=== PATIENT | male | born 1955 | race Caucasian/White ===

== ENCOUNTER 2023-08-11 14:56 | Emergency (ER) | payer BC, SELFPAY ==
[2023-08-11 15:01] VITALS: BP 142/77; PULSE 73; RESP 18; TEMP 36.4; O2SAT 98; BMI 24.2
--- NOTE | 2023-08-11 15:51 | EDS_ITS ---
HPI History of Present Illness Chief Complaint: Other, Pain/Inj PFSH PFSH Medical History (Updated 08/11/23 @ 19:[address] Dean Pryor, DO) Kidney stones Home Medications ?Medication ?Instructions ?Recorded ?Last Taken ?Type nitroglycerin 0.4 mg sublingual 0.4 mg sublingual .once PRN 08/11/23 Unknown Rx tablet esophageal spasm #30 tabs pantoprazole 20 mg tablet,delayed 20 mg PO DAILY #30 tabs 08/11/23 Unknown Rx release (Protonix) Allergy/AdvReac Type Severity Reaction Status Date / Time fluticasone (From Flonase) Allergy Other Verified 08/11/23 15:01 levofloxacin (From Levaquin) Allergy Other Verified 08/11/23 15:01 monosodium glutamate (msg) Allergy Other Verified 08/11/23 15:01 sulfamethoxazole (From Allergy PT UNSURE Verified 08/11/23 15:01 Bactrim) OF REACTION trimethoprim (From Bactrim) Allergy PT UNSURE Verified 08/11/23 15:01 OF REACTION Surgical History (Updated 08/11/23 @ 15:45 by Caryl Arndt) History of appendectomy Social History Smoking Status: Former smoker EXAM Physical Exam Const Vital Signs: 08/11/23 15:01 08/11/23 15:44 08/11/23 16:59 Temperature 97.6 F L Temperature Source Temporal Pulse Rate 73 70 Respiratory Rate 18 Respiratory Effort Normal Non-Labored Respiratory Pattern Normal Blood Pressure 142/77 H 149/85 H Blood Pressure Mean 98 Pulse Ox 98 Oxygen Delivery Method Room Air 08/11/23 17:00 08/11/23 19:00 08/11/23 20:40 Temperature 98 F Temperature Source Pulse Rate 70 71 65 Respiratory Rate 15 19 H 17 Respiratory Effort Respiratory Pattern Blood Pressure 149/85 H 126/69 H 141/78 H Blood Pressure Mean 106 88 99 Pulse Ox 99 94 97 Oxygen Delivery Method Room Air Room Air MDM MDM MDM Narrative Medical decision making narrative: HISTORY OF PRESENT ILLNESS: 68-year-old male presents with difficulty swallowing. Patient states he has a history of esophageal spasms. Per patient was diagnosed with this clinically by his primary care physician, family practitioner who made this diagnosis based on his symptoms. He is never had a EGD or seen a GI doctor. He states today he developed his usual symptoms where he feels a sense of fullness in his e pigastrium, pain. He notes today symptoms did not resolve with his usual therapy of drinking 3 glasses of water very hard. He denies any chest pain but notes shortness of breath. The patient denies recent surgery in the last 4 weeks or immobilization in the last 3 days, denies previous diagnosis of DVT or PE, hemoptysis, unilateral leg swelling or malignancy with treatment the last 6 months or palliative. No estrogen use noted. Denies any bleeding diathesis. REVIEW OF SYSTEMS: Pertinent positives: Difficulty swallowing, shortness of breath Pertinent negatives: Chest pain, bleeding, loss of consciousness PHYSICAL EXAM: Nursing triage notes reviewed, Vital signs reviewed Constitutional: please see mdm HENT: MMM, controlling secretions, speaking full sentences, patent posterior o ropharynx, no tonsillar erythema, edema, uvula midline, Eyes: Pupils equal round and reactive to light, Extraocular muscles intact Neck: No stridor, no JVD, full neck ROM trachea midline Lungs: Clear to auscultation, No wheezing or rales. No increased work of breathing, no conversational dyspnea, no accessory muscle use, no nasal flaring. No respiratory distress noted Heart: Regular rate and rhythm, No murmurs, No rubs and No gallops, 2+ distal pulses (radial, femoral, posterior tibial) in all extremities Abdomen: Soft, there is no tenderness, rigidity, rebound or guarding, no obvious peritoneal signs, no palpable pulsatile abdominal masses, no auscultated abdominal bruit : No CVAT Extremities: No edema Neuro: No focal neurological deficits, cranial nerves II through XII intact, 5/5 strength in all extremities. Intact sensation to light touch in all extremities, 2+ reflexes bilateral patella tendons. Normal gait. No ataxia. Skin: No rash or lesions noted MEDICAL DECISION MAKING: Chief Complaint: esophageal spasms External records reviewed: No GI visits, EGDs or other intervention per our chart or clinisync Factors affecting care: none Social determinants of health: none History obtained from others: The patient's Consults: none [facility] Narrative: The patient was hemodynamically stable, afebrile and nontoxic-appearing. I considered the following differential diagnosis: ACS, viscus perforation, anemia, pancreatitis, valvular obstruction, esophageal food impaction, pneumonia, heart failure I obtained a broad lab and imaging workup to further elucidate the etiology of the patient's complaints ALL IMAGES (IF OBTAINED) HAVE BEEN PERSONALLY REVIEWED AND INTERPRETED BY MYSELF. EKG with normal sinus rhythm, normal axis, normal intervals, no STEMI CBC without leukocytosis, severe anemia, no thrombocytopenia. BMP without evidence of significant electrolyte abnormalities, no anion gap, no acute kidney injury. LFTs show no evidence of hepatobiliary pathology. Noted hyperbilirubinemia Lipase is wnl indicating no pancreatic inflammation. High-sensitivity troponin is negative, no evidence of myocardial ischemia I have personally reviewed the patient's chest x-ray. Chest x-ray is unremarkable for pulmonary edema, pneumothorax, pneumonia or focal cardiopulmonary abnormality. CT scan of the abdomen/pelvis shows GERD, distal esophagus debris The synthesis of the patient's history, physical exam, labs images suggest no acute life-limiting etiology. No evidence of esophageal food impaction as patient was tolerating secretions, appeared comfortable, and was tolerated PO. Patient's labs images are most consistent with GERD. Will prescribe Protonix. Will Give GI follow-up for definitive outpatient testing. The patient and/or family, caregivers express understanding. The patient and/or family, caregivers agrees with the plan. Shared decision making: I will have a discussion with the patient and or visitors regarding risk/benefits of further testing or admission. They will be made aware of of the risk/benefits inherent in this decision they will be given the opportunity to voice understanding. Total critical care time today provided was at least 0 minutes. This excludes separately billable procedures. Critical care time (if documented) is secondary to the patient having high probability of clinically significant/life th reatening deterioration in the patient's condition which required my urgent intervention. Impression: 1. Epigastric abdominal pain 2. GERD 3. Hyperbilirubinemia Dispo: Discharge This note was generated with [employer] dictation software. It may contain incorrect words, spelling, and punctuation that were not noted in review of the chart prior to signing. Lab Data Labs: Laboratory Results - last 24 hr 08/11/23 16:47 WBC 5.7 RBC 4.68 Hgb 15.1 Hct 44.8 MCV 95.7 H MCH 32.3 H MCHC 33.7 RDW Std Deviation 43.3 RDW Coeff of Sony 12.4 Plt Count 230 MPV 9.2 Immature Gran % (Auto) 0.200 Neut % (Auto) 65.1 Lymph % (Auto) 19.0 [place] % (Auto) 12.4 H Eos % (Auto) 2.4 Baso % (Auto) 0.9 Absolute Neuts (auto) 3.7 Absolute Lymphs (auto) 1.09 Nucleated RBC % 0 Sodium 138 Potassium 3.9 Chloride 106 Carbon Dioxide 27.0 Anion Gap 5 BUN 28 H Creatinine 1.15 Estim Creat Clear Calc 65.48 Est GFR (MDRD) Af Amer 81 Est GFR (MDRD) Non-Af 67 BUN/Creatinine Ratio 24.3 H Glucose 94 Calcium 9.5 Total Bilirubin 1.50 H Direct Bilirubin 0.24 AST 27 ALT 36 Alkaline Phosphatase 44 L Troponin I High Sens 5 Total Protein 7.4 Albumin 3.9 Globulin 3.5 Lipase 45 Radiography Diagnostic Testing: Clinical Impression(s) from Imaging Studies Abdomen/Pelvis CT 08/11/23 16:36 IMPRESSION: Debris within the distal esophagus without more proximal esophageal distention, suggestive of gastroesophageal reflux. No specific finding within the abdomen or pelvis to explain patient''s pain. Bladder is well filled without surrounding inflammation. Correlate for ability to void.. Electronically Signed: Jose Baltazar MD at 19:05 EDT , Chest X-Ray 08/11/23 17:25 IMPRESSION: No radiographic evidence of acute cardiopulmonary disease. Electronically Signed: Jose Baltazar MD at 18:07 EDT , Discharge Plan Triage Chief Complaint: Other, Pain/Inj ED Provider: Dean Pryor Dx/Rx/DC Orders Clinical Impression: Gastroesophageal reflux disease, Abdominal pain, epigastric Instructions: ED Epigastric Pain Uncertain Cause Prescriptions: New pantoprazole [Protonix] 20 mg tablet,delayed release (DR/EC) 20 mg PO DAILY Qty: 30 0RF nitroglycerin 0.4 mg tablet, sublingual 0.4 mg sublingual .once PRN (Reason: esophageal spasm) Qty: 30 0RF Rx Instructions: do not exceed 3 doses per episode Primary Care Provider: Elvis Castillo Referrals: Elvis Castillo DO [Primary Care Provider] - Friend,DO Carlos [Med Staff - Active Staff] - Activity Restrictions/Additional Instructions: Thank you for trusting us with your care today! Please take Tylenol (2 pills, 650 mg), ibuprofen (2 pills, 400 mg) every 6 hours as needed for pain and fever control. Please take Protonix as prescribed. Please return to the emergency department if your symptoms change or worsen. Please follow with your primary care physician/GI doctor for further outpatient evaluation and management. Print Language: Swazi Disposition Disposition: Home, Self Care Discharge Date/Time: 08/11/23 20:52
--- NOTE | 2023-08-11 16:36 | CT_ITS ---
INDICATION: epigastric abdominal pain EXAMINATION: CT ABDOMEN AND PELVIS WITH CONTRAST - CT Abdomen And Pelvis W/ Contrast Injection TECHNIQUE: Helically acquired images were obtained of the abdomen and pelvis following IV contrast. A radiation dose optimization technique was used for this scan. IV Contrast dosage and agent: 100 mL [id number] Oral contrast: None. COMPARISON: Chest radiograph August 11, 2023. FINDINGS: LOWER CHEST: Lung bases are clear. No cardiomegaly or pericardial effusion. Debris within distal esophagus. LIVER: Homogeneous. No focal mass. GALLBLADDER AND BILIARY TREE: No calcified gallstones. No gallbladder distension or wall edema. No intra- or extrahepatic biliary ductal dilation. PANCREAS: No focal cystic or solid mass. SPLEEN: Normal size without focal cystic or solid mass. ADRENAL GLANDS: No nodules. KIDNEYS AND URETERS: Normal renal size and position. No hydronephrosis. Unremarkable ureters. PERITONEUM: No ascites or free air. No other fluid collection. BOWEL: No acute gastric finding. No small bowel distention or focal wall thickening. Appendix is not seen. No right lower quadrant inflammation to suggest appendicitis. No colonic wall thickening or surrounding inflammation. . LYMPH NODES: No enlarged mesenteric or retroperitoneal lymph nodes. VESSELS: Aorta is non-dilated. URINARY BLADDER: Bladder well filled without wall thickening or surrounding inflammation.. ABDOMINAL WALL: No discrete abdominal or pelvic wall hernia. BONES: No lytic or blastic abnormality. CT/Abdomen/Pelvis W IV Cont ONLY IMPRESSION: Debris within the distal esophagus without more proximal esophageal distention, suggestive of gastroesophageal reflux. No specific finding within the abdomen or pelvis to explain patient''s pain. Bladder is well filled without surrounding inflammation. Correlate for ability to void.. Electronically Signed: Jose Baltazar MD at 19:05 EDT ,
--- NOTE | 2023-08-11 16:36 | EKG12_ITS ---
Test Reason : Blood Pressure : / mmHG Vent. Rate : 066 BPM Atrial Rate : 066 BPM P-R Int : 170 ms QRS Dur : 096 ms QT Int : 424 ms P-R-T Axes : 030 098 048 degrees QTc Int : 444 ms Normal sinus rhythm Rightward axis PROBABLY NORMAL Confirmed by Elvis Huang [id number]), slot editor CUAUHTEMOC BARRERA ([id number]) on 08/12/2023 8:09:29 AM Referred By: Confirmed By:Elvis Huang
[2023-08-11] MEDS: 0.9% Normal Saline (500mL Bag) 500 ML 1000 ML IV (16:58)
[2023-08-11 16:59] VITALS: BP 149/85; PULSE 70
[2023-08-11] MEDS: Ondansetron 4 MG/2 ML Vial IV (16:59)
[2023-08-11] MEDS: Nitroglycerin SL (ED/IMG/CATH) 0.4 MG TABLET SL (16:59)
[2023-08-11 17:00] VITALS: BP 149/85; PULSE 70; RESP 15; O2SAT 99
[2023-08-11] MEDS: Glucagon 1 MG/ML Syringe 0.5 MG IV (17:00)
[2023-08-11 17:07] LABS: Absolute Lymphocyte Count 1.09 X10^3/uL (0.83-4.51); Absolute Neutrophil Count 3.7 X10^3/uL (2.0-7.7); Basophil# 0.05 X10^3/uL; Basophil% 0.9 % (0-1); Eosinophil# 0.14 X10^3/uL; Eosinophils% 2.4 % (0-5); Hematocrit 44.8 % (40-54); Hemoglobin 15.1 g/dL (13.0-16.5); Lymphocyte # 1.09 X10^3/ul (0.83-4.51); Mean Corp Hgb Conc 33.7 g/dL (32-36); Mean Corpuscular Hgb 32.3 pg (27.0-32.0); Mean Corpuscular Volume 95.7 fL (80-94); Mean Platelet Vol. 9.2 fl (6.2-12.0); Monocyte# 0.71 X10^3/uL; Monocyte% 12.4 % (0-10); NRBC Flagged by Analyzer 0 % (0-5); Neutrophil # 3.74 X10^3/uL (2.7-7.7); Neutrophil % 65.1 % (47-70); Platelet Count 230 K/mm3 (150-450); RBC Distribution Width CV 12.4 % (11.6-14.6); RBC Distribution Width SD 43.3 fl (35.1-43.9); Red Blood Count 4.68 M/mm3 (4.6-6.2); White Blood Count 5.7 K/mm3 (4.4-11.0)
--- NOTE | 2023-08-11 17:25 | RAD_ITS ---
INDICATION: SOB EXAMINATION/TECHNIQUE: X-RAY - XR Chest 1 View COMPARISON: None FINDINGS: LINES/DEVICES: None. LUNGS: No consolidation, edema or effusion. No pneumothorax. MEDIASTINUM AND CARDIOVASCULAR STRUCTURES: Cardiac silhouette not enlarged. BONES AND SOFT TISSUES: Unremarkable. RAD/Chest 1 View (Portable) IMPRESSION: No radiographic evidence of acute cardiopulmonary disease. Electronically Signed: Jose Baltazar MD at 18:07 EDT ,
[2023-08-11] MEDS: LORazepam 2 MG/ML Syringe 0.5 MG IV (17:39)
[2023-08-11 17:46] LABS: AST(SGOT) 27 U/L (15-37); Alanine Aminotransfer ALT/SGPT 36 U/L (16-61); Albumin, Serum 3.9 g/dL (3.2-5.0); Alkaline Phosphatase 44 U/L (45-117); Anion Gap 5 (5-15); BUN 28 mg/dL (7-18); BUN/Creat Ratio 24.3 RATIO (10-20); Bilirubin, Direct 0.24 mg/dL (0.00-0.30); Calcium,Total 9.5 mg/dL (8.5-10.1); Chloride 106 mmol/L (98-107); Creatinine, Serum 1.15 mg/dL (0.70-1.30); EST Glomerular Filtration Rate 67 mL/min (>60); Est Glom Filt Rate - Afr Amer 81 mL/min (>60); Estimated Creatinine Clearance 65.48 ml/min; Globulin 3.5 g/dL (2.2-4.2); Glucose 94 mg/dL (74-106); Lipase 45 U/L (13-75); Potassium 3.9 mmol/L (3.5-5.1); Protein, Total 7.4 g/dL (6.4-8.2); Sodium Level 138 mmol/L (136-145); Troponin-I HS 5 pg/mL (3.0-78.0)
[2023-08-11 19:00] VITALS: BP 126/69; PULSE 71; RESP 19; O2SAT 94
[2023-08-11 20:40] VITALS: BP 141/78; PULSE 65; RESP 17; TEMP 36.6; O2SAT 97
== END 2023-08-11 20:52 | disposition home or self-care (01) ==
PROVIDERS: Emergency Provider Emergency Medicine; PCP Student in an Organized Health Care Education/Training Program; Visit Provider Emergency Medicine
DX: R10.13 Epigastric pain (principal); K21.9 Gastro-esophageal reflux disease without esophagitis; E80.7 Disorder of bilirubin metabolism, unspecified; R13.10 Dysphagia, unspecified; R06.02 Shortness of breath; Z79.899 Other long term (current) drug therapy; Z87.891 Personal history of nicotine dependence
CPT/HCPCS: 71045; 74177; 80048; 80076; 83690; 84484; 85025; 93005; 96361; 96374; 96375; 99285; J7040; Q9967; A4216; J1610; J2405